=== PATIENT | male | born 1995 | race African-American/Black ===

== ENCOUNTER 2016-10-14 18:47 | Emergency (ER) | payer OTHER ==
[~2016-10-14] VITALS: Ht 172.7 cm; Wt 73.6 kg
[2016-10-14] MEDS ORDERED: OLAN15TA2 PO (18:53)
[2016-10-14] MEDS ORDERED: OMEP10SU PO (18:53)
[2016-10-14] MEDS ORDERED: DIVA250T4 PO (18:53)
[2016-10-14] MEDS ORDERED: ERGO400C PO (18:53)
[2016-10-14] MEDS ORDERED: CLON1TAB PO (18:53)
[2016-10-14] MEDS ORDERED: LORA-703 PO (18:55)
[2016-10-14] MEDS ORDERED: ALBU2.5V2 NEB (18:55)
[2016-10-14 19:30] LABS: BASOPHILS % (AUTO) 1.7 % (0.0-2.0); EOSINOPHILS % (AUTO) 2.6 % (1.0-6.0); HEMOGLOBIN 14.7 g/dL (13.5-17.5); LYMPHOCYTES # (AUTO) 2.1 K/uL (1.0-4.8); LYMPHOCYTES % (AUTO) 41.8 % (22.0-44.0); MEAN CORPUSCULAR HEMOGLOBIN 30.6 pg (26.0-34.0); MEAN CORPUSCULAR HGB CONC 33.5 G/dL (31.0-37.0); MEAN CORPUSCULAR VOLUME 91 fL (80-100); MONOCYTES # (AUTO) 0.2 K/uL (0.1-1.0); MONOCYTES % (AUTO) 4.7 % (2.0-9.0); NEUTROPHILS # (AUTO) 2.4 K/uL (1.8-7.7); NEUTROPHILS % (AUTO) 49.2 % (40.0-70.0); PLATELET COUNT (AUTO) 188 K/uL (150-450); RED BLOOD CELL COUNT(AUTO) 4.82 MIL/uL (4.50-5.90); RED CELL DISTRIBUTION WIDTH 15.5 % (11.5-14.5); WHITE BLOOD COUNT (AUTO) 4.9 K/uL (4.5-11.0)
[2016-10-14 19:40] LABS: ANION GAP 6 mmol/L (8-16); CALCIUM, TOTAL 9.6 mg/dL (8.8-10.5); CARBON DIOXIDE 31 mmol/L (22-29); CHLORIDE 104 mmol/L (98-107); CREATININE 0.97 mg/dL (0.60-1.30); GLOMERULAR FILTR. RATE CALC > 60 mL/min (>60); POTASSIUM 4.3 mmol/L (3.5-5.1); SODIUM SERUM 141 mmol/L (136-145); UREA NITROGEN, BLOOD 11 mg/dL (7-18)
[2016-10-14 19:46] LABS: ALANINE AMINOTRANSFERASE 42 U/L (12-78); ALBUMIN 3.7 g/dL (3.4-5.0); ASPARTATE AMINOTRANSFERASE 23 U/L (15-37); BILIRUBIN,TOTAL 0.3 mg/dL (0.1-1.0); TOTAL PROTEIN, SERUM 7.2 g/dL (6.4-8.2); VALPROIC ACID 46 mcg/mL (50-100)
[2016-10-14] MEDS ORDERED: LORazepam 1 MG TABLET PO ONE (20:45)
[2016-10-14 20:58] VITALS: BP 124/83
== END 2016-10-14 21:00 | disposition home or self-care (01) ==
LOC: EMS 18:49
DX: F32.9 Major depressive disorder, single episode, unspecified (principal); F41.9 Anxiety disorder, unspecified; F31.9 Bipolar disorder, unspecified; E03.9 Hypothyroidism, unspecified; J45.909 Unspecified asthma, uncomplicated; Z88.0 Allergy status to penicillin
CPT/HCPCS: 36415; 80053; 80164; 80307; 85025; 99284; G0480

== ENCOUNTER 2017-01-19 10:40 | Inpatient (IN) | payer MEDICAID, OTHER ==
[~2017-01-19] VITALS: Ht 170.2 cm; Wt 78.1 kg
[~2017-01-19 10:40] MED LIST: ALBU2.5V2 NEB; CLON1TAB PO; DIVA250T4 PO; ERGO400C PO; LORA-703 PO; OLAN15TA2 PO; OMEP10SU2 PO
[2017-01-19] MEDS ORDERED: ZOLPIDEM TARTRATE 10 MG TABLET PO PRN (13:15)
[2017-01-19] MEDS ORDERED: HALOPERIDOL 5 MG TABLET PO PRN (13:15)
[2017-01-19] MEDS ORDERED: LORazepam 2 MG TABLET PO PRN (13:15)
[2017-01-19] MEDS ORDERED: CLON.5 PO (13:17)
[2017-01-19] MEDS ORDERED: DIVA500T35 PO (13:17)
[2017-01-19] MEDS ORDERED: OMEP20 PO (13:17)
[2017-01-19 14:20] LABS: BASOPHILS # (AUTO) 0.01 K/uL (0.00-0.20); BASOPHILS % (AUTO) 0.2 % (0.0-2.0); EOSINOPHILS # (AUTO) 0.09 K/uL (0.00-0.70); EOSINOPHILS % (AUTO) 1.45 % (1.0-6.0); HEMATOCRIT 47.1 % (41-53); HEMOGLOBIN 15.9 g/dL (13.5-17.5); LYMPHOCYTES # (AUTO) 2.4 K/uL (1.0-4.8); LYMPHOCYTES % (AUTO) 38.3 % (22.0-44.0); MEAN CORPUSCULAR HEMOGLOBIN 30.8 pg (26.0-34.0); MEAN CORPUSCULAR HGB CONC 33.8 G/dL (31.0-37.0); MEAN CORPUSCULAR VOLUME 91 fL (80-100); MONOCYTES # (AUTO) 0.2 K/uL (0.1-1.0); MONOCYTES % (AUTO) 3.6 % (2.0-9.0); NEUTROPHILS # (AUTO) 3.5 K/uL (1.8-7.7); NEUTROPHILS % (AUTO) 56.5 % (40.0-70.0); PLATELET COUNT (AUTO) 229 K/uL (150-450); RED BLOOD CELL COUNT(AUTO) 5.18 MIL/uL (4.50-5.90); RED CELL DISTRIBUTION WIDTH 14.3 % (11.5-14.5); WHITE BLOOD COUNT (AUTO) 6.3 K/uL (4.5-11.0)
[2017-01-19 14:21] LABS: ANION GAP 10 mmol/L (8-16); CARBON DIOXIDE 28 mmol/L (22-29); CHLORIDE 104 mmol/L (98-107); CREATININE 0.97 mg/dL (0.60-1.30); GLOMERULAR FILTR. RATE CALC > 60 mL/min (>60); SODIUM SERUM 142 mmol/L (136-145); UREA NITROGEN, BLOOD 12 mg/dL (7-18)
[2017-01-19 14:28] LABS: ALANINE AMINOTRANSFERASE 22 U/L (12-78); ASPARTATE AMINOTRANSFERASE 18 U/L (15-37); BILIRUBIN,TOTAL 0.6 mg/dL (0.1-1.0); TOTAL PROTEIN, SERUM 7.8 g/dL (6.4-8.2)
[2017-01-19 19:33] VITALS: BP 131/74
[2017-01-19 19:41] VITALS: BP 131/74
[2017-01-19] MEDS: DIVALPROEX SODIUM 500 MG DR TABLET PO SCH (20:30)
[2017-01-20 00:31] VITALS: BP 101/60
[2017-01-20] MEDS ORDERED: BACITRACIN 28.4 GM OINTMENT TP PRN (07:00)
[2017-01-20] MEDS ORDERED: ONDANSETRON HCL 4 MG TABLET PO PRN (07:00)
[2017-01-20] MEDS ORDERED: ACETAMINOPHEN 325 MG TABLET PO PRN (07:00)
[2017-01-20] MEDS ORDERED: PETROLATUM,WHITE 71 GM JELLY TP PRN (07:00)
[2017-01-20] MEDS ORDERED: LOPERAMIDE HCL 2 MG CAPSULE PO PRN (07:00)
[2017-01-20] MEDS ORDERED: MAG HYDROX/AL HYDROX/SIMETH ES 30 ML SUSPENSION UDCUP PO PRN (07:00)
[2017-01-20] MEDS ORDERED: ALBUTEROL SULFATE HFA 90 MCG/PUFF 8 GM INHALER IH PRN (07:00)
[2017-01-20] MEDS ORDERED: IBUPROFEN 600 MG TABLET PO PRN (07:00)
[2017-01-20] MEDS ORDERED: CloNIDine HCL 0.1 MG TABLET PO PRN (07:00)
[2017-01-20] MEDS ORDERED: BENZOCAINE/MENTHOL LOZENGE MM PRN (07:00)
[2017-01-20] MEDS ORDERED: MAGNESIUM HYDROXIDE SUSPENSION 30 ML UDCUP PO PRN (07:00)
[2017-01-20] MEDS: OLANZapine 7.5 MG TABLET PO SCH (09:12)
[2017-01-20] MEDS: DIVALPROEX SODIUM 500 MG DR TABLET PO SCH ×2 (09:12→16:27)
[2017-01-20 09:15] VITALS: BP 148/83
[2017-01-20 09:15] LABS: CHOL/HDL RATIO 2.7 (4.2-7.3)
[2017-01-20 17:10] VITALS: BP 102/61
[2017-01-21 04:30] VITALS: BP 102/67
[2017-01-21 08:18] VITALS: BP 123/65
[2017-01-21] MEDS: DIVALPROEX SODIUM 500 MG DR TABLET PO SCH ×2 (08:28→17:09)
[2017-01-21] MEDS: CHOLECALCIFEROL (VIT D3) 1,000 UNITS TABLET PO SCH (08:28)
[2017-01-21] MEDS: OLANZapine 7.5 MG TABLET PO SCH (08:28)
[2017-01-21 16:16] VITALS: BP 113/63
[2017-01-22] MEDS ORDERED: LEVOTHYROXINE SODIUM 50 MCG TABLET PO SCH (06:30)
[2017-01-22 07:12] VITALS: BP 110/62
[2017-01-22 08:30] VITALS: BP 129/73
[2017-01-22] MEDS: OLANZapine 7.5 MG TABLET PO SCH (09:01)
[2017-01-22] MEDS: DIVALPROEX SODIUM 500 MG DR TABLET PO SCH ×2 (09:01→16:03)
[2017-01-22] MEDS: CHOLECALCIFEROL (VIT D3) 1,000 UNITS TABLET PO SCH (09:01)
[2017-01-22 09:40] LABS: THYROID STIMULATING HORMONE 4.14 uIU/mL (0.36-3.74)
[2017-01-22] MEDS ORDERED: LEVO50TA11 PO (12:56)
== END 2017-01-22 18:00 | disposition home or self-care (01) | DRG 750 ==
LOC: EMS 10:41 → B2S 16:59
PROVIDERS: ADMIT Psychiatry & Neurology Psychiatry; ATTEND Psychiatry & Neurology Psychiatry
DX: F20.0 Paranoid schizophrenia (principal); R45.850 Homicidal ideations; E55.9 Vitamin D deficiency, unspecified; E03.9 Hypothyroidism, unspecified; F12.90 Cannabis use, unspecified, uncomplicated; F32.9 Major depressive disorder, single episode, unspecified; G47.00 Insomnia, unspecified; J45.909 Unspecified asthma, uncomplicated; K21.9 Gastro-esophageal reflux disease without esophagitis; K59.00 Constipation, unspecified; Z79.899 Other long term (current) drug therapy; Z71.51 Drug abuse counseling and surveillance of drug abuser; Z91.14 Patient's other noncompliance with medication regimen; Z88.0 Allergy status to penicillin
CPT/HCPCS: 84439; 84443; 99285; G0480